=== PATIENT | male | born 1965 | race Caucasian/White ===

== ENCOUNTER 2020-03-26 01:06 | Outpatient (CLI) | payer BC, SELFPAY ==
[2020-03-26 19:18] LABS: SARS-CoV-2 RNA PCR Negative
== END 2020-03-26 01:07 | disposition home or self-care (01) ==
LOC: ANHCOVIDDT 01:06
PROVIDERS: PCP Family Medicine Adolescent Medicine; Visit Provider Internal Medicine Gastroenterology
DX: Z01.818 Encounter for other preprocedural examination (principal); Z11.59 Encounter for screening for other viral diseases
CPT/HCPCS: 87635; C9803; U0003

== ENCOUNTER 2020-03-28 02:36 | Day surgery (SDC) | payer BC, SELFPAY ==
[2020-03-18 11:42] VITALS: BMI 25.0
--- NOTE | 2020-03-28 08:27 | WPDANESEPPF ---
Anes - Initial Pre Proc Eval Procedure: Operation Date: 03/28/20 10:00 Proposed Procedures p Esophagogastroduodenoscopy - Julius Garcia MD Date/Time: 03/28/20 08:27 Surgeon: Julius Garcia MD Pre Op Diagnosis: Dysphagia Patient Data Age: 55 Gender: M Height: 1.78 m Weight: 79 kg Allergies Allergy/AdvReac Type Severity Reaction Status Date / Time No Known Allergies Allergy Mild Verified 03/28/20 09:03 Home Medications Medication Instructions Recorded Confirmed Type No Home Medications 03/18/20 03/28/20 History Patient hx anesthesia problems: none Family hx anesthesia problems: none PMF Past Medical History Medical History (Updated 03/28/20 @ 08:28 by Eddi Yoder MD) Chronic diarrhea Dysphagia Surgical History Surgical History (Updated 03/28/20 @ 08:28 by Eddi Yoder MD) Hx of spinal surgery LOWER BACK SURGERY X2, INTERMITTEN RT FOOT NUMBNESS Hx of tonsillectomy Anes - Eval Final PreProcedure Day of Procedure 03/28/20 08:27 Patient weight: normal Heart: regular rate and rhythm Lungs: clear to auscultation and normal air movement Airway: Mallampati scale class II Neurological: alert and oriented Last oral intake: >/= 8 hours ASA classification: II Emergent: no Anesthetic plan: proceed Anesthesia type and monitoring: general GIVS Informed Consent: The patient's anesthetic plan and its attendant risks and benefits were discussed with the patient/family/POA. Questions were solicited and answers provided to the satisfaction of the patient/family/POA.
[2020-03-28 09:04] VITALS: BP 103/65; PULSE 54; RESP 21; TEMP 36.6; O2SAT 98; BMI 25.2
[2020-03-28] MEDS: LACTATED RINGERS 1,000 ML 150 ML IV CONT (09:15)
--- NOTE | 2020-03-28 09:50 | P.CONGI_ITS ---
Assessment and Plan Assessment and plan (1) Dysphagia: Code(s): R13.10 - Dysphagia, unspecified Status: Acute Assessment and Plan: patient has difficulty swallowing is. Suspicious for esophageal narrowing. P rebeca is for EGD to assess more thoroughly. Further recommendations will be given after endoscopy. GI Consult Note Consult date/time: 03/28/20 09:50 HPI: Dakotah Oconnor is a 55 year old male seen in evaluation at the request of Dr Hiren Dillon. Patient reports difficulty swallowing for the last 1-2 months. He states that food will catch in his throat. Typically solids more so than liquids. He does denies any pain he states when this happens he is able to breathe without difficulty. He has had significant regurgitation but denies heartburn. He has had no bleeding. His weight has remained stable. Review of Systems Review of Systems: All systems reviewed & are unremarkable except as noted in HPI and below PMFSH Past Medical History Medical History Chronic diarrhea Dysphagia Surgical History Surgical History Hx of spinal surgery LOWER BACK SURGERY X2, INTERMITTEN RT FOOT NUMBNESS Hx of tonsillectomy Meds Home Medications and Allergies Home Medications Medication Instructions Recorded Confirmed Type No Home Medications 03/18/20 03/28/20 History Allergies Allergy/AdvReac Type Severity Reaction Status Date / Time No Known Allergies Allergy Mild Verified 03/28/20 09:03 Vital Signs Vital Signs - 24 hr 03/28/20 09:04 Temperature 97.9 F Pulse Rate 54 L Respiratory Rate 21 H Blood Pressure 103/65 Pulse Oximetry 98 Exam Narrative: Exam Narrative: Physical exam reveals patient to be alert. Vital signs stable. HEENT exam unremarkable. Lungs are clear to auscultation and percussion. Heart is without murmur or extra sounds. Abdominal exam bowel sounds present soft nontender with no organomegaly. Digital external rectal exam deferred at this time
[2020-03-28] MEDS: BENZOCAINE (*SP) 60 ML SPRAY CAN (HURRICAINE) 1 SPRAY MUCOUS MEM (10:08)
[2020-03-28 10:19] VITALS: BP 110/73; PULSE 60; RESP 17; O2SAT 100
[2020-03-28 10:29] VITALS: BP 94/71; PULSE 53; RESP 22; O2SAT 100
[2020-03-28 10:39] VITALS: BP 116/77; PULSE 53; RESP 18; O2SAT 100
== END 2020-03-28 10:50 | disposition home or self-care (01) ==
PROVIDERS: PCP Family Medicine Adolescent Medicine; Visit Provider Internal Medicine Gastroenterology
PROC: 0DJ08ZZ Inspection of Upper Intestinal Tract, Via Natural or Artificial Opening Endoscopic (ICD-10-PCS; CPT 43235; principal; 2020-03-28 10:00)
DX: R13.10 Dysphagia, unspecified (principal)
CPT/HCPCS: 43450; 43235; J2704; J7120